=== PATIENT | male | born 1950 | race Caucasian/White ===

== ENCOUNTER 2020-08-03 15:20 | Emergency (ER) | payer MEDICARE, SELFPAY ==
[2020-08-03 15:45] VITALS: BP 133/69; PULSE 67; RESP 16; TEMP 36.8; O2SAT 97; BMI 31.6
--- NOTE | 2020-08-03 15:58 | XR_ITS ---
EXAMINATION: XR HIP, RIGHT. XR KNEE, RIGHT. CLINICAL INFORMATION: Pain after a fall COMPARISON: None TECHNIQUE: AP radiograph of the pelvis with AP and frog-lateral views of the right hip. 3 views of the right knee. FINDINGS: Right hip: Mild osteoarthritis with osteophytes along the superior acetabular rim. No fracture. Normal alignment. Similar degenerative findings of the left hip. Right knee: Revision total knee arthroplasty with the components in the usual position and alignment. No fracture or evidence of loosening. There is a large joint effusion. XR/XR knee RT 4V IMPRESSION: Right hip: No fracture. Mild osteoarthritis. Right knee: Cemented revision arthroplasty with no acute osseous abnormality. There is a large joint effusion.
--- NOTE | 2020-08-03 15:59 | XR_ITS ---
EXAMINATION: XR HIP, RIGHT. XR KNEE, RIGHT. CLINICAL INFORMATION: Pain after a fall COMPARISON: None TECHNIQUE: AP radiograph of the pelvis with AP and frog-lateral views of the right hip. 3 views of the right knee. FINDINGS: Right hip: Mild osteoarthritis with osteophytes along the superior acetabular rim. No fracture. Normal alignment. Similar degenerative findings of the left hip. Right knee: Revision total knee arthroplasty with the components in the usual position and alignment. No fracture or evidence of loosening. There is a large joint effusion. XR/XR hip RT w PEL1V IMPRESSION: Right hip: No fracture. Mild osteoarthritis. Right knee: Cemented revision arthroplasty with no acute osseous abnormality. There is a large joint effusion.
[2020-08-03] MEDS: Acetaminophen 325 MG TABLET 650 MG PO (16:06)
--- NOTE | 2020-08-03 16:08 | ED_ITS ---
HPI - Extremity Injury (Lower) General Chief Complaint: Extremity Injury, Lower Stated Complaint: Fall/right knee pain Time Seen by Provider: 08/03/20 15:45 Source: patient Mode of arrival: wheelchair History of Present Illness HPI Narrative: 70-year-old male with past medical history of pacemaker, diabetes, hypertension, hyperlipidemia presenting to the emergency department after a fall. 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 He states he stopped at a rest stop and was going to use an outdoor restroom when he did not notice a curb and fell landing on his right knee. He denies head injury with, LOC. He denies preceding symptoms such as chest pain, shortness of breath, dizziness, lightheadedness. Patient does take daily aspirin but is not on other coagulants. He endorses hearing an awful noise from his right knee when he fell. He does have a knee replacement that was done in 2017 with a revision in August 2019. His orthopedist is in [place]. He denies fevers, chest pain, shortness of breath, abdominal pain, back pain, incontinence. He denies other injuries. No paresthesias noted. Related Data Allergies Allergy/AdvReac Type Severity Reaction Status Date / Time No Known Allergies Allergy Verified 08/03/20 15:44 Review of Systems Constitutional: Constitutional: Denies fever(s), Denies frequent falls, Denies headache(s) and Denies weakness Eyes: Eyes: Reports no additional eye complaints ENT: Denies headache(s) Cardiovascular: Cardiovascular: Denies chest pain, Denies syncope and Denies dyspnea Respiratory: Respiratory: Denies dyspnea Gastrointestinal: Gastrointestinal: Denies abdominal pain and Denies vomiting Musculoskeletal: Comments: Right knee pain Neurologic: Denies syncope, Denies frequent falls, Denies headache(s) and Denies weakness Psychiatric: Psychiatric: Reports no additional psychiatric complaints Hematologic/Lymphatic: Hematologic/Lymphatic: Denies easy bleeding and Denies easy bruising PMFSH Past Medical History Medical History (Updated 08/03/20 @ 17:00 by Ameena Cruz) Acid reflux Cataract Diabetes Edema High cholesterol HTN (hypertension) Pacemaker Surgical History H/O hemorrhoidectomy H/O shoulder surgery History of cholecystectomy S/P left knee arthroscopy S/P TKR (total knee replacement) Social History Social History (Updated 08/03/20 @ 16:11 by MARIE Medina) Smoking Status: Former smoker Advance Directives: No Advance Directives Information Provided: Yes Current occupational status: employed Physical Exam Vital Signs: Vital Signs: Last Vital Signs Temp 98.2 F 08/03/20 15:45 Pulse 67 08/03/20 15:45 Resp 16 08/03/20 15:45 BP 133/69 08/03/20 15:45 Pulse Ox 97 08/03/20 15:45 Body Mass Index 31.6 Const: Other: Lying on a stretcher General: cooperative Orientation/consciousness: patient oriented x3 HENMT: Head: Yes normocephalic, Yes atraumatic and No Burrell's sign Eyes: Pupils: Equal, round and reactive pupils present EOM: EOMs intact bilaterally Neck: Neck: Yes trachea midline, Yes supple and No tender Chest: Chest palpation & inspection: normal inspection of the chest and no tenderness Resp: Effort & Inspection: normal respiratory effort and able to speak in complete sentences Auscultation: clear to auscultation bilaterally Cardio: Rate: regular rate Rhythm: regular rhythm GI: Palpation (GI): Soft to palpation and nontender Back/Spine/Pelvis: Other: Normal range of motion Skin: Other: Warm Neuro: Other: Slow gait secondary to pain in his right knee General: patient oriented x3 Cranial nerves: Yes Equal, round and reactive pupils present Extrem: Other: Right lower extremity-positive pedal pulse, full range of motion of digits, ankle, limited range of motion of knee secondary to pain, able to flex approximately 45 degrees, old incisional scar noted, no erythema or warmth, swelling is noted diffusely to his anterior knee, no posterior calf or knee tenderness, no limb shortening or rotation, no tenderness to palpation of hip, tenderness to medial aspect of knee, compartment soft, neurovascularly intact MDM - Extremity Injury (Lower) MDM Narrative Medical decision making narrative: 70-year-old male presenting to emergency department with a fall complaining of right knee pain Vital stable, nontoxic appearing, hemodynamically stable Will plan for plain films of his hip and knee to rule out fracture. Patient has gotten a full joint replacement will assess for hardware fracture as well. Patient's compartments are soft low suspicion for compartment syndrome. No calf tenderness or swelling to suggest a DVT. Patient denies preceding syncopal symptoms. No LOC or head injury. Will defer on head CT. No reported neck pain or back pain to suggest underlying fracture. No evidence of thoracoabdominal injury. The injury to upper extremities. No open wounds. No signs or symptoms of infectious process. Will give Tylenol for pain. I discussed x-ray results with patient and attempted to provide him a knee immobilizer however patient states he cannot tolerate it. He was wrapped with an German bandage. I recommended that we encouraged him to use his knee immobilizer however he declined. I offered to provide a walker for him however he also declined that. He states his will help him get around. 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 I also discussed taking an airplane ride back to [place] however due to financial concerns he states he cannot afford this and will manage to get back home. I recommended he follow-up with his orthopedist in [place]. Advised Tylenol for pain. Return precautions were discussed. Discharge Plan Discharge Clinical Impression: Knee pain, Effusion of right knee, Fall Patient Disposition: Home, Self-Care Instructions: Knee Pain (ED), R.I.C.E. Treatment (ED), Fall Prevention (ED) Additional Instructions: You were seen in the emergency department for knee pain after fall. Your x-rays of your right knee show that you have swelling to that knee, x-ray of your hip and pelvis were unremarkable. We recommend that you elevate your leg and placed ice packs to reduce the swelling. Use knee immobilizer when moving around and use a walker for support to prevent a fall. When you are at home you may remove the knee immobilizer and elevate your leg. Weightbearing as tolerated. Please return to emergency department if the swelling worsens, worsening pain, calf pain, unsteadiness, recurrence fall, or any other concerning symptoms. We recommend that you call your orthopedic doctor when you return back to [place] soon as possible. It is possible you may have injured a ligament which could be causing the swelling therefore we would like you to see orthopedist.You may take tylenol for pain. No prescriptions given. Stand Alone Forms: Work/School Release
--- NOTE | 2020-08-03 18:41 | PC.NURSE ---
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 PT STATES IT FEEL COMFORTABLE.
== END 2020-08-03 17:20 | disposition home or self-care (01) ==
PROVIDERS: Emergency Provider Emergency Medicine
DX: M25.561 Pain in right knee (principal); M25.461 Effusion, right knee; Z91.81 History of falling; E11.9 Type 2 diabetes mellitus without complications; I10 Essential (primary) hypertension; Z95.0 Presence of cardiac pacemaker; Z96.652 Presence of left artificial knee joint; Z87.891 Personal history of nicotine dependence
CPT/HCPCS: 73502; 73564; 99283; 99284